=== PATIENT | female | born 1965 | race African-American/Black ===

== ENCOUNTER 2022-01-13 10:44 | Inpatient (IN) | payer MEDICAID ==
[~2022-01-13] VITALS: Ht 170.2 cm; Wt 107.5 kg
[2022-01-13] MEDS ORDERED: IOHEXOL-350 100 ML BOTTLE ONE (11:08)
[2022-01-13 11:53] LABS: BASOPHILS % 1.2 % (0.0-2.0); EOSINOPHILS % 1.7 % (0.0-5.0); HEMATOCRIT. 37.8 % (36.0-48.0); HEMOGLOBIN. 13.3 g/dL (12.0-16.0); LYMPHOCYTES % 20.9 % (20.0-50.0); MEAN CORPUSCULAR HEMOGLOBIN 30.2 pg (28.0-32.0); MEAN CORPUSCULAR VOLUME 85.7 fL (81.0-99.0); MEAN PLATELET VOLUME 8.8 fl (7.4-10.4); MONOCYTES % 3.4 % (2.0-8.0); NEUTROPHILS % 72.8 % (40.0-76.0); PLATELET 270 x1000/uL (130-400); RED CELL DISTRIBUTION WIDTH 13.7 % (11.6-14.6)
[2022-01-13 11:58] LABS: CHLORIDE 104 mEq/L (98-107)
[2022-01-13 12:07] LABS: ETHANOL BLOOD < 10 mg/dL
[2022-01-13 12:58] LABS: CLARITY URINE CLEAR (CLEAR); COLOR URINE YELLOW (YELLOW); KETONES URINE NEGATIVE (NEGATIVE); LEUKOCYTE ESTERASE URINE NEGATIVE (NEGATIVE); NITRITE URINE NEGATIVE (NEGATIVE); OCCULT BLOOD URINE NEGATIVE (NEGATIVE); PROTEIN URINE NEGATIVE (NEGATIVE); SPECIFIC GRAVITY URINE 1.022 (1.005-1.030); UROBILINOGEN URINE 0.2 E.U./dL (0.2-1.0)
[2022-01-13 13:24] LABS: *AMPHETAMINES SCREEN URINE NEGATIVE (NEGATIVE); *BARBITURATES SCREEN URINE NEGATIVE (NEGATIVE); *BENZODIAZEPINES SCREEN URINE NEGATIVE (NEGATIVE); *COCAINE SCREEN URINE PRESUMTIVE POSITIVE (NEGATIVE); CANNABINOID URINE SCREEN PRESUMTIVE POSITIVE (NEGATIVE); METHADONE URINE SCREEN NEGATIVE (NEGATIVE); OPIATES URINE SCREEN NEGATIVE (NEGATIVE); PHENCYCLIDINE URINE SCREEN NEGATIVE (NEGATIVE)
[2022-01-13] MEDS ORDERED: ASPIRIN 325MG TABLET PO ONE (15:30)
[2022-01-13 16:00] VITALS: BP 154/78
[2022-01-13] MEDS ORDERED: HYDRALAZINE 20MG/ML VIAL IV PRN (16:00)
[2022-01-13] MEDS ORDERED: HYDROCODONE/ACETAMINOPHEN 5/325MG TABLET PO PRN (16:00)
[2022-01-13] MEDS ORDERED: DOCUSATE SODIUM 100MG CAPSULE PO PRN (16:00)
[2022-01-13] MEDS ORDERED: GUAIFENESIN 200MG/10ML SUGAR FREE UDC PO PRN (16:00)
[2022-01-13] MEDS ORDERED: ACETAMINOPHEN 325MG TABLET PO PRN (16:00)
[2022-01-13] MEDS ORDERED: CLONIDINE 0.1MG TABLET PO PRN (16:00)
[2022-01-13] MEDS ORDERED: ONDANSETRON HCL 4MG/2ML INJ IV PRN (16:00)
[2022-01-13] MEDS ORDERED: MAGNESIUM/ALUMINUM HYDROXIDE/SIMETHICONE 30ML UDC PO PRN (16:00)
[2022-01-13] MEDS ORDERED: DIPHENHYDRAMINE 50MG/ML VIAL IV PRN (16:00)
[2022-01-13] MEDS ORDERED: MORPHINE SULFATE 2 MG/ML CPJ (NOT FOR IM USE) IV PRN (16:00)
[2022-01-13] MEDS ORDERED: IPRATROPIUM/ALBUTEROL 0.5-3(2.5)MG/3ML NEB HHN PRN (16:00)
[2022-01-13] MEDS ORDERED: NALOXONE HCL 0.4MG/ML VIAL IV PRN (16:15)
[2022-01-13] MEDS ORDERED: DEXT 5%/0.45% NACL 1000ML 1,000 ML IV SCH (16:30)
[2022-01-13] MEDS: ENOXAPARIN 40MG/0.4ML SYR SUBCUT SCH (17:31)
[2022-01-13 18:51] VITALS: BP 154/78
[2022-01-13 20:00] VITALS: BP 142/85
[2022-01-14] VITALS: BP 108/68
[2022-01-14 04:00] VITALS: BP 149/85
[2022-01-14 08:00] VITALS: BP 110/60
[2022-01-14 12:00] VITALS: BP 100/67
[2022-01-14] MEDS: SODIUM CHLORIDE 0.9% INJ 3ML FLUSH IVF SCH ×2 (13:04→22:00)
[2022-01-14 16:04] VITALS: BP 132/75
[2022-01-14] MEDS: ENOXAPARIN 40MG/0.4ML SYR SUBCUT SCH (16:35)
[2022-01-14 19:03] LABS: BASOPHILS % 0.8 % (0.0-2.0); EOSINOPHILS % 3.4 % (0.0-5.0); HEMATOCRIT. 43.4 % (36.0-48.0); HEMOGLOBIN. 14.9 g/dL (12.0-16.0); LYMPHOCYTES % 43.1 % (20.0-50.0); MEAN CORPUSCULAR HEMOGLOBIN 29.6 pg (28.0-32.0); MEAN CORPUSCULAR VOLUME 86.6 fL (81.0-99.0); MEAN PLATELET VOLUME 8.2 fl (7.4-10.4); MONOCYTES % 7.5 % (2.0-8.0); NEUTROPHILS % 45.2 % (40.0-76.0); PLATELET 317 x1000/uL (130-400); RED BLOOD CELL COUNT 5.01 mill/uL (4.2-5.4); RED CELL DISTRIBUTION WIDTH 13.8 % (11.6-14.6)
[2022-01-14 19:07] LABS: CHLORIDE 101 mEq/L (98-107)
[2022-01-14 20:00] VITALS: BP 110/63
[2022-01-15] VITALS: BP 98/63
[2022-01-15 04:00] VITALS: BP 134/77
[2022-01-15] MEDS: SODIUM CHLORIDE 0.9% INJ 3ML FLUSH IVF SCH (05:28)
[2022-01-15 07:07] LABS: BASOPHILS % 0.8 % (0.0-2.0); EOSINOPHILS % 3.6 % (0.0-5.0); HEMATOCRIT. 43.5 % (36.0-48.0); LYMPHOCYTES % 44.8 % (20.0-50.0); MEAN CORPUSCULAR VOLUME 86.8 fL (81.0-99.0); MONOCYTES % 6.1 % (2.0-8.0); NEUTROPHILS % 44.7 % (40.0-76.0); PLATELET 335 x1000/uL (130-400); RED BLOOD CELL COUNT 5.01 mill/uL (4.2-5.4); RED CELL DISTRIBUTION WIDTH 14.1 % (11.6-14.6)
[2022-01-15 07:16] LABS: CHLORIDE 104 mEq/L (98-107)
[2022-01-15 08:00] VITALS: BP 113/76
[2022-01-15 12:00] VITALS: BP 116/73
[2022-01-15 13:08] VITALS: BP 116/73
== END 2022-01-15 14:29 | disposition home or self-care (01) | DRG 816 ==
LOC: ER 10:44 → 6WST 15:23 → EDBEDREQSVC 15:33 → EDBEDREQTM 15:33 → EDBEDREQ 15:33 → ENRESERV 16:47
PROVIDERS: ADMIT Internal Medicine; ATTEND Internal Medicine
DX: T40.5X1A Poisoning by cocaine, accidental (unintentional), initial encounter (principal); G92.8 Other toxic encephalopathy; F12.90 Cannabis use, unspecified, uncomplicated; F14.10 Cocaine abuse, uncomplicated; F15.90 Other stimulant use, unspecified, uncomplicated; F17.210 Nicotine dependence, cigarettes, uncomplicated; H53.8 Other visual disturbances; I10 Essential (primary) hypertension; R29.703 NIHSS score 3; R07.89 Other chest pain; R29.810 Facial weakness; R53.1 Weakness; Z71.51 Drug abuse counseling and surveillance of drug abuser
CPT/HCPCS: 36415; 70496; 70498; 70551; 71045; 80048; 80053; 80305; 80320; 81003; 84484; 85025; 92610; 93005; 93306; 93970; 99285; J1650; Q9967; G0480

== ENCOUNTER 2023-09-04 01:05 | Emergency (ER) | payer OTHER, MEDICAID ==
[~2023-09-04] VITALS: Ht 167.6 cm; Wt 86.0 kg
[2023-09-04 01:12] VITALS: O2SAT 98
[2023-09-04] MEDS ORDERED: MORPHINE SULFATE 4 MG/ML INJ (FOR IV/IM USE) IV STA (01:50)
[2023-09-04] MEDS ORDERED: ONDANSETRON HCL 4MG/2ML INJ IV STA (01:50)
[2023-09-04 03:04] LABS: BASOPHILS % 0.6 % (0.0-2.0); EOSINOPHILS % 2.5 % (0.0-5.0); HEMATOCRIT. 42.5 % (36.0-48.0); HEMOGLOBIN. 14.9 g/dL (12.0-16.0); LYMPHOCYTES % 23.9 % (20.0-50.0); MEAN CORPUSCULAR HEMOGLOBIN 29.7 pg (28.0-32.0); MEAN CORPUSCULAR HGB CONC 35.1 g/dL (31.0-37.0); MEAN CORPUSCULAR VOLUME 84.6 fL (81.0-99.0); MEAN PLATELET VOLUME 8.7 fl (7.4-10.4); MONOCYTES % 7.2 % (2.0-8.0); NEUTROPHILS % 65.8 % (40.0-76.0); PLATELET 250 x1000/uL (130-400); RED BLOOD CELL COUNT 5.02 mill/uL (4.2-5.4); RED CELL DISTRIBUTION WIDTH 13.8 % (11.6-14.6); WHITE BLOOD COUNT 10.6 x1000/uL (4.5-11.0)
[2023-09-04 03:31] LABS: ALANINE AMINOTRANSFERASE 17 IU/L (10-49); ALBUMIN 4.4 g/dL (3.2-4.8); ASPARTATE AMINOTRANSFERASE 27 IU/L (<34); BILIRUBIN TOTAL 0.4 mg/dL (0.1-1.0); CALCIUM 9.2 mg/dL (8.7-10.4); CARBON DIOXIDE 30 mEq/L (21-32); CHLORIDE 104 mEq/L (98-107); CREATININE 1.1 mg/dL (0.6-1.0); GLUCOSE 102 mg/dL (70-105); POTASSIUM 4.1 mEq/L (3.5-5.1); PROTEIN TOTAL 7.1 g/dL (6.0-8.3); SODIUM 139 mEq/L (136-145); UREA NITROGEN BLOOD 13 mg/dL (9-23)
[2023-09-04 03:56] LABS: CLARITY URINE CLEAR (CLEAR); COLOR URINE YELLOW (YELLOW); GLUCOSE URINE NEGATIVE (NEGATIVE); KETONES URINE NEGATIVE (NEGATIVE); LEUKOCYTE ESTERASE URINE 2+ (NEGATIVE); NITRITE URINE NEGATIVE (NEGATIVE); OCCULT BLOOD URINE NEGATIVE (NEGATIVE); PH URINE 6.5 (4.5-8.0); PROTEIN URINE NEGATIVE (NEGATIVE); SPECIFIC GRAVITY URINE 1.005 (1.005-1.030); UROBILINOGEN URINE 0.2 E.U./dL (0.2-1.0)
[2023-09-04 05:10] LABS: SQUAMOUS EPITHELIAL CELL URINE FEW /lpf (RARE/1+)
[2023-09-04 05:13] LABS: RBC URINE 0-2 /hpf (0-2)
[2023-09-04 05:14] LABS: BACTERIA URINE 1+
[2023-09-04] MEDS: SODIUM CHLORIDE 0.9% 1,000 ML IV ONE (05:26)
[2023-09-04] MEDS: ONDANSETRON HCL 4MG/2ML INJ IV NR (05:29)
[2023-09-04] MEDS ORDERED: MORPHINE SULFATE 4 MG/ML INJ (FOR IV/IM USE) IV NR (05:30)
[2023-09-04] MEDS ORDERED: PHEN-815 MT (05:38)
[2023-09-04] MEDS ORDERED: IBUP-2028 MT (05:38)
[2023-09-04] MEDS ORDERED: NITR-87 MT (05:38)
[2023-09-04 06:11] VITALS: BP 168/83; PULSE 62; RESP 16
== END 2023-09-04 06:30 | disposition home or self-care (01) ==
LOC: ER 01:05
DX: N30.90 Cystitis, unspecified without hematuria (principal); I10 Essential (primary) hypertension; F14.10 Cocaine abuse, uncomplicated
CPT/HCPCS: 99285; 74176; 96374; 71045; 96361; 80053; 81003; 83605; 83690; 85025; 36415; J2405; J7030

== ENCOUNTER 2024-02-23 05:01 | Emergency (ER) | payer OTHER, MEDICAID ==
[~2024-02-23] VITALS: Ht 172.7 cm; Wt 90.3 kg
[~2024-02-23 05:01] MED LIST: IBUP-2028 MT; NITR-87 MT; PHEN-815 MT
[2024-02-23 05:05] VITALS: TEMP 95.9; O2SAT 97
[2024-02-23 06:30] VITALS: BP 152/81; PULSE 69; RESP 20; O2SAT 99
[2024-02-23 06:45] LABS: BASOPHILS % 0.4 % (0.0-2.0); EOSINOPHILS % 3.1 % (0.0-5.0); HEMATOCRIT. 40.4 % (36.0-48.0); HEMOGLOBIN. 14.1 g/dL (12.0-16.0); LYMPHOCYTES % 12.5 % (20.0-50.0); MEAN CORPUSCULAR HEMOGLOBIN 29.3 pg (28.0-32.0); MEAN CORPUSCULAR HGB CONC 34.9 g/dL (31.0-37.0); MEAN CORPUSCULAR VOLUME 83.9 fL (81.0-99.0); MONOCYTES % 6.9 % (2.0-8.0); NEUTROPHILS % 77.1 % (40.0-76.0); PLATELET 236 x1000/uL (130-400); RED BLOOD CELL COUNT 4.82 mill/uL (4.2-5.4); RED CELL DISTRIBUTION WIDTH 14.2 % (11.6-14.6); WHITE BLOOD COUNT 5.8 x1000/uL (4.5-11.0)
[2024-02-23 06:52] LABS: CHLORIDE 107 mEq/L (98-107); POTASSIUM 3.9 mEq/L (3.5-5.1); SODIUM 140 mEq/L (136-145)
[2024-02-23 06:53] LABS: CARBON DIOXIDE 27 mEq/L (21-32)
[2024-02-23 06:54] LABS: CALCIUM 9.2 mg/dL (8.7-10.4)
[2024-02-23 06:58] LABS: CREATININE 1.1 mg/dL (0.6-1.0); GLUCOSE 99 mg/dL (70-105); UREA NITROGEN BLOOD 14 mg/dL (9-23)
[2024-02-23 07:04] LABS: INR 0.9; PROTHROMBIN TIME 10.4 sec (9.6-11.0)
[2024-02-23 07:23] LABS: TROPONIN I HIGH SENSITIVITY < 4 ng/L (3.0-34)
[2024-02-23 07:24] LABS: ETHANOL BLOOD < 10 mg/dL (<10)
== END 2024-02-23 09:01 | disposition left against medical advice (07) ==
LOC: ER 05:17
DX: G45.9 Transient cerebral ischemic attack, unspecified (principal); F19.90 Other psychoactive substance use, unspecified, uncomplicated; I10 Essential (primary) hypertension; Z98.890 Other specified postprocedural states; Z85.9 Personal history of malignant neoplasm, unspecified
CPT/HCPCS: 80048; 80320; 85025; 85610; 84484; 36415; 71045; 70450; 93005; 99285; Z7610; G0480

== ENCOUNTER 2025-01-05 23:44 | Emergency (ER) | payer OTHER, MEDICAID ==
[~2025-01-05] VITALS: Ht 170.2 cm; Wt 91.0 kg
[2025-01-06 00:34] VITALS: O2SAT 96
[2025-01-06 04:32] VITALS: BP 136/74; PULSE 69; RESP 18; TEMP 37.2; O2SAT 96
[2025-01-06 04:35] LABS: BASOPHILS % 1.4 % (0.0-2.0); EOSINOPHILS % 3.4 % (0.0-5.0); HEMATOCRIT. 41.3 % (36.0-48.0); HEMOGLOBIN. 14.3 g/dL (12.0-16.0); LYMPHOCYTES % 33.0 % (20.0-50.0); MEAN PLATELET VOLUME 8.2 fl (7.4-10.4); MONOCYTES % 7.6 % (2.0-8.0); NEUTROPHILS % 54.6 % (40.0-76.0); PLATELET 234 x1000/uL (130-400); RED BLOOD CELL COUNT 4.77 mill/uL (4.2-5.4); RED CELL DISTRIBUTION WIDTH 14.3 % (11.6-14.6)
[2025-01-06 04:47] LABS: INR 1.0
[2025-01-06 04:50] LABS: CREATININE 1.3 mg/dL (0.6-1.0); UREA NITROGEN BLOOD 20 mg/dL (9-23)
[2025-01-06 04:52] LABS: ASPARTATE AMINOTRANSFERASE 24 IU/L (<34); BILIRUBIN DIRECT 0.1 mg/dL (<=3.0); BILIRUBIN TOTAL 0.6 mg/dL (0.1-1.0); PROTEIN TOTAL 7.4 g/dL (6.0-8.3)
[2025-01-06 05:27] LABS: CLARITY URINE CLOUDY (CLEAR); COLOR URINE YELLOW (YELLOW); GLUCOSE URINE NEGATIVE (NEGATIVE); KETONES URINE NEGATIVE (NEGATIVE); LEUKOCYTE ESTERASE URINE 1+ (NEGATIVE); NITRITE URINE POSITIVE (NEGATIVE); OCCULT BLOOD URINE NEGATIVE (NEGATIVE); PH URINE 6.0 (4.5-8.0); PROTEIN URINE NEGATIVE (NEGATIVE); SPECIFIC GRAVITY URINE 1.012 (1.005-1.030); UROBILINOGEN URINE 1.0 E.U./dL (0.2-1.0)
[2025-01-06 05:53] LABS: SQUAMOUS EPITHELIAL CELL URINE 1+ /lpf (RARE/1+)
[2025-01-06 05:55] LABS: BACTERIA URINE 3+; RBC URINE 0-2 /hpf (0-2)
[2025-01-06] MEDS ORDERED: NITR100C MT (06:32)
[2025-01-06] MEDS ORDERED: PSYL0.4C2 MT (06:32)
[2025-01-06] MEDS ORDERED: DOCU-422 MT (06:32)
[2025-01-06] MEDS: DOCUSATE SODIUM 250MG CAPSULE PO ONE (07:01)
== END 2025-01-06 07:02 | disposition home or self-care (01) ==
LOC: ER 23:51
DX: K59.00 Constipation, unspecified (principal); N39.0 Urinary tract infection, site not specified; I10 Essential (primary) hypertension; Z79.899 Other long term (current) drug therapy
CPT/HCPCS: 36415; 74176; 80048; 80076; 81003; 85025; 99284

== ENCOUNTER 2025-02-05 03:10 | Emergency (ER) | payer MEDICAID, OTHER ==
[~2025-02-05 03:10] MED LIST changes: +DOCU-422 MT; +NITR100C MT; +PSYL0.4C2 MT
[2025-02-05 03:13] VITALS: O2SAT 96
[2025-02-05] MEDS ORDERED: ASPIRIN 81MG TABLET PO NR (04:30)
[2025-02-05 04:41] VITALS: BP 210/102; PULSE 68; RESP 18; TEMP 37.1; O2SAT 99
[2025-02-05] MEDS ORDERED: CLONIDINE 0.1MG TABLET PO PRN (07:15)
[2025-02-05] MEDS ORDERED: HYDRALAZINE 20MG/ML VIAL IV PRN (07:15)
[2025-02-05] MEDS ORDERED: DOCUSATE SODIUM 100MG CAPSULE PO PRN (07:30)
[2025-02-05] MEDS ORDERED: ENOXAPARIN 40MG/0.4ML SYR SUBCUT SCH (07:30)
[2025-02-05] MEDS ORDERED: NITROGLYCERIN 0.4MG TABLET SL SL PRN (07:30)
[2025-02-05] MEDS ORDERED: GUAIFENESIN 200MG/10ML SUGAR FREE UDC PO PRN (07:30)
[2025-02-05] MEDS ORDERED: ACETAMINOPHEN 325MG TABLET PO PRN ×2 (07:30)
[2025-02-05] MEDS ORDERED: ONDANSETRON HCL 4MG/2ML INJ IV PRN (07:30)
[2025-02-05] MEDS ORDERED: IPRATROPIUM/ALBUTEROL 0.5-3(2.5)MG/3ML NEB HHN PRN (07:30)
[2025-02-05] MEDS ORDERED: MAGNESIUM/ALUMINUM HYDROXIDE/SIMETHICONE 30ML UDC PO PRN (07:30)
[2025-02-05] MEDS ORDERED: KCL 20MEQ/100ML PREMIX 100 ML IV NR (07:45)
[2025-02-05] MEDS ORDERED: PANTOPRAZOLE SODIUM 40 MG/VIAL IV SCH (09:00)
[2025-02-05] MEDS ORDERED: AMLODIPINE 5MG TABLET PO SCH (09:00)
[2025-02-05] MEDS ORDERED: MULTIVITAMINS,THER W-MINERALS TABLET PO SCH (09:00)
[2025-02-05] MEDS ORDERED: ATORVASTATIN CALCIUM 40MG TABLET PO SCH (21:00)
[2025-02-06] MEDS ORDERED: ASPIRIN 81MG EC TABLET PO SCH (09:00)
[2025-02-06] MEDS ORDERED: ASPI-1406 PO (12:16)
[2025-02-06] MEDS ORDERED: AMLO2.5T45 PO (12:16)
[2025-02-06] MEDS ORDERED: SULF-292 PO (12:16)
[2025-02-06] MEDS ORDERED: LIP40 PO (12:16)
[2025-02-06] MEDS ORDERED: CLON0.1T PO (12:16)
== END 2025-02-05 07:30 | disposition left against medical advice (07) ==
LOC: EDBD → ER 03:10
DX: R07.9 Chest pain, unspecified (principal); F12.90 Cannabis use, unspecified, uncomplicated; F17.210 Nicotine dependence, cigarettes, uncomplicated; I10 Essential (primary) hypertension; Z85.3 Personal history of malignant neoplasm of breast
CPT/HCPCS: 93005; 99283

== ENCOUNTER 2025-02-05 03:20 | Inpatient (IN) | payer OTHER, MEDICAID ==
[~2025-02-05] VITALS: Ht 171.4 cm; Wt 98.0 kg
[2025-02-05 03:20] VITALS: O2SAT 96
[2025-02-05] MEDS: ASPIRIN 81MG TABLET ONE (03:45)
[2025-02-05 04:48] LABS: INR 0.9
[2025-02-05 04:57] LABS: CREATININE 1.1 mg/dL (0.6-1.0); TROPONIN I HIGH SENSITIVITY < 4 ng/L (3.0-34); UREA NITROGEN BLOOD 13 mg/dL (9-23)
[2025-02-05 04:59] LABS: ASPARTATE AMINOTRANSFERASE 27 IU/L (<34); BILIRUBIN DIRECT < 0.1 mg/dL (<=3.0); BILIRUBIN TOTAL 0.3 mg/dL (0.1-1.0); PROTEIN TOTAL 7.2 g/dL (6.0-8.3)
[2025-02-05 05:00] LABS: BASOPHILS % 0.4 % (0.0-2.0); EOSINOPHILS % 1.8 % (0.0-5.0); HEMATOCRIT. 40.1 % (36.0-48.0); HEMOGLOBIN. 13.7 g/dL (12.0-16.0); LYMPHOCYTES % 22.1 % (20.0-50.0); MEAN PLATELET VOLUME 9.0 fl (7.4-10.4); MONOCYTES % 6.1 % (2.0-8.0); NEUTROPHILS % 69.6 % (40.0-76.0); PLATELET 221 x1000/uL (130-400); RED BLOOD CELL COUNT 4.68 mill/uL (4.2-5.4); RED CELL DISTRIBUTION WIDTH 14.2 % (11.6-14.6)
[2025-02-05] MEDS: LABETALOL 5MG/ML 4ML INJ IV ONE (05:22)
[2025-02-05] MEDS ORDERED: ASPIRIN 81MG TABLET PO NR (06:15)
[2025-02-05] MEDS ORDERED: HYDRALAZINE 20MG/ML VIAL IV PRN (08:00)
[2025-02-05] MEDS ORDERED: NITROGLYCERIN 0.4MG TABLET SL SL PRN (08:00)
[2025-02-05] MEDS ORDERED: ONDANSETRON HCL 4MG/2ML INJ IV PRN (08:00)
[2025-02-05] MEDS ORDERED: IPRATROPIUM/ALBUTEROL 0.5-3(2.5)MG/3ML NEB HHN PRN (08:00)
[2025-02-05] MEDS ORDERED: KCL 20MEQ/100ML PREMIX 100 ML IV ONE (08:00)
[2025-02-05] MEDS ORDERED: GUAIFENESIN 200MG/10ML SUGAR FREE UDC PO PRN (08:00)
[2025-02-05] MEDS ORDERED: MAGNESIUM/ALUMINUM HYDROXIDE/SIMETHICONE 30ML UDC PO PRN (08:00)
[2025-02-05] MEDS ORDERED: CLONIDINE 0.1MG TABLET PO PRN (08:00)
[2025-02-05] MEDS ORDERED: DOCUSATE SODIUM 100MG CAPSULE PO PRN (08:00)
[2025-02-05] MEDS ORDERED: ACETAMINOPHEN 325MG TABLET PO PRN ×2 (08:00)
[2025-02-05 09:00] VITALS: BP 157/77; PULSE 65; RESP 17; TEMP 36.4; O2SAT 98
[2025-02-05 09:06] LABS: PHOSPHORUS 3.0 mg/dL (2.5-4.9)
[2025-02-05 09:06] LABS: *AMPHETAMINES SCREEN URINE NEGATIVE (NEGATIVE); *BARBITURATES SCREEN URINE NEGATIVE (NEGATIVE); *BENZODIAZEPINES SCREEN URINE NEGATIVE (NEGATIVE); *COCAINE SCREEN URINE PRESUMPTIVE POSITIVE (NEGATIVE); METHADONE URINE SCREEN NEGATIVE (NEGATIVE); OPIATES URINE SCREEN NEGATIVE (NEGATIVE); PHENCYCLIDINE URINE SCREEN NEGATIVE (NEGATIVE)
[2025-02-05 09:07] LABS: CANNABINOID URINE SCREEN NEGATIVE (NEGATIVE); CLARITY URINE CLEAR (CLEAR); COLOR URINE YELLOW (YELLOW); ECSTASY MDMA SCREEN URINE NEGATIVE (NEGATIVE); PH URINE 6.5 (4.5-8.0); PROTEIN URINE NEGATIVE (NEGATIVE); SPECIFIC GRAVITY URINE 1.010 (1.005-1.030)
[2025-02-05 09:08] LABS: GLUCOSE URINE NEGATIVE (NEGATIVE); KETONES URINE NEGATIVE (NEGATIVE); LEUKOCYTE ESTERASE URINE 2+ (NEGATIVE); NITRITE URINE POSITIVE (NEGATIVE); OCCULT BLOOD URINE NEGATIVE (NEGATIVE); UROBILINOGEN URINE 1.0 E.U./dL (0.2-1.0)
[2025-02-05 09:36] LABS: BACTERIA URINE 4+; SQUAMOUS EPITHELIAL CELL URINE FEW /lpf (RARE/1+)
[2025-02-05 09:37] LABS: RBC URINE 0-2 /hpf (0-2); WBC URINE 15-25 /hpf (0-2)
[2025-02-05 10:07] VITALS: BP 157/77; PULSE 65; RESP 17; TEMP 36.418
[2025-02-05] MEDS ORDERED: IOHEXOL-350 100 ML BOTTLE ONE (10:11)
[2025-02-05] MEDS: MULTIVITAMINS,THER W-MINERALS TABLET PO SCH (10:50)
[2025-02-05] MEDS: PANTOPRAZOLE SODIUM 40 MG/VIAL IV SCH (10:50)
[2025-02-05] MEDS: ASPIRIN 81MG EC TABLET PO SCH (10:51)
[2025-02-05] MEDS: AMLODIPINE 5MG TABLET PO SCH (10:51)
[2025-02-05] MEDS: ENOXAPARIN 40MG/0.4ML SYR SUBCUT SCH (10:52)
[2025-02-05 12:04] VITALS: BP 153/80; PULSE 55; RESP 18; TEMP 36.5; O2SAT 100
[2025-02-05] MEDS: CLONIDINE 0.1MG TABLET PO SCH (13:26)
[2025-02-05] MEDS: KCL 20MEQ/100ML PREMIX 100 ML IV NR (13:26)
[2025-02-05 16:00] VITALS: BP 128/73; PULSE 62; RESP 20; TEMP 36.7; O2SAT 100
[2025-02-05 16:29] LABS: CREATINE KINASE MB FRACTION 1.0 ng/mL (0.5-3.6)
[2025-02-05 20:00] VITALS: BP 106/72; PULSE 72; RESP 20; TEMP 36.4; O2SAT 95
[2025-02-05] MEDS: POTASSIUM CHLORIDE 20MEQ TABLET SR PO SCH (21:57)
[2025-02-05] MEDS: ATORVASTATIN CALCIUM 40MG TABLET PO SCH (21:57)
[2025-02-06] VITALS: BP 104/70; PULSE 62; RESP 19; TEMP 36.4; O2SAT 96
[2025-02-06 01:46] LABS: CREATINE KINASE MB FRACTION 0.8 ng/mL (0.5-3.6)
[2025-02-06 04:00] VITALS: BP 124/72; PULSE 66; RESP 20; TEMP 36.7; O2SAT 97
[2025-02-06 07:17] LABS: BASOPHILS % 0.7 % (0.0-2.0); EOSINOPHILS % 4.0 % (0.0-5.0); HEMATOCRIT. 40.3 % (36.0-48.0); HEMOGLOBIN. 13.7 g/dL (12.0-16.0); LYMPHOCYTES % 38.9 % (20.0-50.0); MEAN PLATELET VOLUME 8.6 fl (7.4-10.4); MONOCYTES % 7.6 % (2.0-8.0); NEUTROPHILS % 48.8 % (40.0-76.0); PLATELET 239 x1000/uL (130-400); RED BLOOD CELL COUNT 4.73 mill/uL (4.2-5.4); RED CELL DISTRIBUTION WIDTH 14.1 % (11.6-14.6)
[2025-02-06 07:45] LABS: TROPONIN I HIGH SENSITIVITY < 4 ng/L (3.0-34)
[2025-02-06 07:50] LABS: ASPARTATE AMINOTRANSFERASE 26 IU/L (<34); BILIRUBIN DIRECT < 0.1 mg/dL (<=3.0); BILIRUBIN TOTAL 0.4 mg/dL (0.1-1.0); PROTEIN TOTAL 6.4 g/dL (6.0-8.3)
[2025-02-06 07:52] LABS: CREATININE 1.2 mg/dL (0.6-1.0); UREA NITROGEN BLOOD 16 mg/dL (9-23)
[2025-02-06 08:00] VITALS: BP 126/80; PULSE 66; RESP 2; TEMP 36.6; O2SAT 100
[2025-02-06] MEDS: AMLODIPINE 2.5MG TABLET PO SCH (09:26)
[2025-02-06] MEDS: SULFAMETHOXAZOLE/TRIMETHOPRIM 400/80MG TAB PO SCH (11:52)
[2025-02-06 12:00] VITALS: BP 117/70; PULSE 67; RESP 20; TEMP 36.7; O2SAT 100
[2025-02-06] MEDS ORDERED: AMLO2.5T45 PO (12:16)
[2025-02-06] MEDS ORDERED: SULF-292 PO (12:16)
[2025-02-06] MEDS ORDERED: ASPI-1406 PO (12:16)
[2025-02-06] MEDS ORDERED: CLON0.1T PO (12:16)
[2025-02-06] MEDS ORDERED: LIP40 PO (12:16)
[2025-02-06 14:18] VITALS: BP 117/70; PULSE 67; TEMP 98.1
[2025-02-06 16:00] VITALS: BP 111/68; PULSE 64; RESP 20; TEMP 36.4; O2SAT 100
== END 2025-02-06 18:09 | disposition home or self-care (01) | DRG 199 ==
LOC: ER 03:20 → 8WST 05:47 → EDBEDREQ 05:52 → EDBEDREQTM 05:52 → ENRESERV 05:56
PROVIDERS: ADMIT Hospitalist; ATTEND Hospitalist
DX: I16.1 Hypertensive emergency (principal); E78.5 Hyperlipidemia, unspecified; I10 Essential (primary) hypertension; J44.9 Chronic obstructive pulmonary disease, unspecified; E87.6 Hypokalemia; F17.210 Nicotine dependence, cigarettes, uncomplicated; N39.0 Urinary tract infection, site not specified; F19.90 Other psychoactive substance use, unspecified, uncomplicated; Z85.3 Personal history of malignant neoplasm of breast; Z90.13 Acquired absence of bilateral breasts and nipples
CPT/HCPCS: 36415; 71045; 71275; 80048; 80053; 80076; 80305; 81003; 82248; 82550; 82553; 83735; 83880; 84100; 84484; 85025; 85379; 87077; 87186; 93005; 93306; 99285; J1650; J2470; J3480; J3490; Q9967

== ENCOUNTER 2025-04-22 23:41 | Emergency (ER) | payer OTHER, MEDICAID ==
[~2025-04-22] VITALS: Ht 167.6 cm; Wt 73.0 kg
[~2025-04-22 23:41] MED LIST changes: +AMLO2.5T45 PO; +ASPI-1406 PO; +CLON0.1T PO; -DOCU-422 MT; -IBUP-2028 MT; +LIP40 PO; -NITR-87 MT; -NITR100C MT; -PHEN-815 MT; -PSYL0.4C2 MT; +SULF-292 PO
[2025-04-22 23:46] VITALS: BP 158/90; PULSE 78; RESP 18; TEMP 36.8; O2SAT 97
== END 2025-04-23 01:20 | disposition home or self-care (01) ==
LOC: ER 23:41
DX: R04.0 Epistaxis (principal); I10 Essential (primary) hypertension; F12.90 Cannabis use, unspecified, uncomplicated; Z79.899 Other long term (current) drug therapy
CPT/HCPCS: 99283